=== PATIENT | male | born 1955 | race Caucasian/White ===

== ENCOUNTER → 2018-04-22 | Outpatient (CLI) | payer BC ==
[2018-04-22 13:00] LABS: HEMATOCRIT 47.3 % (42.0-52.0); HEMOGLOBIN 16.4 g/dl (13.5-18.0); MEAN CELL VOLUME 88 fl (80.0-100.0); MEAN CORPUSCULAR HEMOGLOBIN 30 pg (27.0-31.0); MEAN CORPUSCULAR HGB CONC 35 g/dl (33.0-37.0); MEAN PLATELET VOLUME 10.4 fl (7.4-10.4); PLATELET COUNT 242 K/mm3 (130-400); REDCELL DISTRIBUTION WIDTH-CV 12.2 % (11.5-14.5)
[2018-04-22 13:21] LABS: ERYTHROCYTE SEDIMENTATION RATE 1 mm/hr (0-30)
== END ==
LOC: COL.LAB 12:25
PROVIDERS: Orthopaedic Surgery
DX: Z01.812 Encounter for preprocedural laboratory examination (principal); M17.12 Unilateral primary osteoarthritis, left knee

== ENCOUNTER 2018-05-12 08:55 | Inpatient (IN) | payer BC ==
[~2018-05-12] VITALS: Ht 177.8 cm; Wt 99.6 kg
[2018-06-16] VITALS (10 sets, daily range): BP systolic 101–136; BP diastolic 54–79; PULSE 58–97; TEMP 97.7–98.2
[2018-06-16] MEDS ORDERED: PRINIVIL20 MG PO (06:49)
[2018-06-16] MEDS ORDERED: PRILOSEC 20MG20 MG PO (06:51)
--- NOTE | 2018-06-16 16:06 | NUR ---
PT TO ROOM 330 WITH REPORT FROM [facility] PACU @ 9912. PT IS A/O X3, LUNGS CLEAR, BOWEL SOUNDS PRESENT. DRESSING TO LEFT KNEE CDI WITH AQUACEL OVER INCISION. SCDS, TEDS, CRYOCUFF INPLACE. IV TO PUMP, VSS. PT RESTING IN BED
--- NOTE | 2018-06-16 16:20 | NUR ---
PT RESTING IN BED CONTACTED [facility] TO SEND MESSAGE TO CARA CURIEL APRN OR DR MARTINES TO REVIEW ORDERS ON PATIENT.
--- NOTE | 2018-06-16 16:35 | NUR ---
BOBBI AVILES AND CARA CHILD ABUSE WORKER IN TO ROUND ON PATEINT THIS PM.
--- NOTE | 2018-06-16 20:30 | NUR ---
Assessment completed. Patient is A&O x 4. Post-op vitals stable. Denies any pain at this time. Aquacell dressing to left knee is CDI with cryocuff maintained. Pedal pulses intact. BLE abran hose/scds on. Encouraged ankle pumps. Tolerating diet with no c/o nausea. Ortega catheter to DD with yellow clear urine draining. IVF infusing with intermittent antibiotic per orders. Up with assist x 2, patient did get dizzy while up and assisted back into bed after ambulating 15 feet. One in bed positioned patient laying flat with head lowered, stated he felt better once he got back to the bed. Vitals remained stable. Bed remains in a low position with call light in reach.
--- NOTE | 2018-06-16 21:50 | NUR ---
Patient has been resting in bed visiting with family members on his cell phone. Reports he feels much better and does not c/o of any dizziness, prn Oxycodone given for c/o left thigh pain. Denies any concerns or needs, call light remains within reach.
[2018-06-17 00:51] VITALS: BP 134/63; PULSE 72; TEMP 98.7
--- NOTE | 2018-06-17 05:26 | NUR ---
Patient has rested intermittently through the night. VSS. Pain controlled with alternating [place]. Aquacell dressing to left knee remains CDI with cryocuff maintained to knee. Ortega catheter remains to DD with yellow clear urine draining. IVF infusing with intermittent antibiotic. Denies any concerns or needs at this time, call light is within reach.
[2018-06-17 05:48] VITALS: BP 105/69; PULSE 71; TEMP 98.6
[2018-06-17 06:19] LABS: HEMATOCRIT 38.3 % (42.0-52.0); HEMOGLOBIN 13.1 g/dl (13.5-18.0)
[2018-06-17 08:38] VITALS: BP 105/57; PULSE 68; TEMP 97.6
--- NOTE | 2018-06-17 10:22 | NUR ---
First visit from the hardwood floor sander. No needs right now.
[2018-06-17 11:56] VITALS: BP 113/61; PULSE 71; TEMP 98.3
--- NOTE | 2018-06-17 16:00 | NUR ---
SW and SW student met with patient to discuss discharge planning. Patient lives in [place] with his [place]. Patient has a walker and will be doing outpatient PT at [facility]. Patients PCP is Dr Lazaro Celestin and he obtains his mdeications from [facility]. Patient does not have any anticipated discharge needs at this time.
[2018-06-17 16:06] VITALS: BP 95/52; PULSE 90; TEMP 98
[2018-06-17 16:28] LABS: HEMATOCRIT 39.6 % (42.0-52.0); HEMOGLOBIN 13.5 g/dl (13.5-18.0)
[2018-06-17 20:52] VITALS: BP 157/82; PULSE 101; TEMP 98.7
--- NOTE | 2018-06-17 21:00 | NUR ---
Pt. laying in bed at thist time. Pt. is A&OX3, assessment complete. INT to lt. hand patent. Dressing to lt. knee CDI, cryo-cuff on. Pt. denies kev or other needs at this time. Call light within reach.
[2018-06-18 00:25] VITALS: BP 119/68; PULSE 58; TEMP 98.4
--- NOTE | 2018-06-18 06:10 | NUR ---
Pt. slept well through the night. Pt. remains A&OX3. INT to lt. hand patent. Dressing to lt. knee CDI. Cryocuff to lt. knee. Pt. denies pain or other needs at this time.
[2018-06-18] MEDS ORDERED: ASPI325T6 PO (06:41)
[2018-06-18] MEDS ORDERED: TYLENOL 500MG500 MG PO (06:41)
[2018-06-18] MEDS ORDERED: NORCO 325 MG-7.1 TAB PO (06:49)
[2018-06-18] MEDS ORDERED: ROXICODONE 55 MG/TAB PO (06:50)
--- NOTE | 2018-06-18 07:10 | NUR ---
REPORT FROM YOU RIBERA. CARA MONTELONGO CIRCULATION CLERK IN TO SEE PT. PLAN ON DISCHARGE HOME TOMMORROW IF INSURANCE COVERAGE AUTHORIZED. REQUEST FOR MONOLOGIST/CASE MANAGEMENT TO VERIFY COVERAGE FOR ONE MORE NIGHT. PT RESTING IN BED. DENIES NEEDS AT THIS TIME.
[2018-06-18 07:38] VITALS: BP 125/61; PULSE 95; TEMP 98.6
--- NOTE | 2018-06-18 08:54 | NUR ---
PT UP INDEPENDENTLY IN ROOM. DRESSING TO KNEE CDI WITH NO DRAINAGE NOTED. PAIN CONTROLLED WITH PO MEDS.
[2018-06-18 11:46] VITALS: BP 109/64; PULSE 95; TEMP 98.9
--- NOTE | 2018-06-18 14:24 | NUR ---
DRESSING CHANGE COMPLETE. DISTAL DRAINAGE NOTED. BITA INTACT AND CLEAN. NEW AQUACEL APPLIED.
--- NOTE | 2018-06-18 14:48 | NUR ---
DISCHARGE INSTRUCTIONS PROVIDED TO PT AND . QUESTIONS ANSWERED BOTH VERBALIZED UNDERSTANDING. PT ESCORTED TO FRONT VIA WC WITH STAFF.
== END 2018-06-18 15:14 | disposition home or self-care (01) | DRG 468 ==
LOC: JCC 06-16 05:44
PROVIDERS: ADMIT Orthopaedic Surgery
PROC: 0SPD0JZ Removal of Synthetic Substitute from Left Knee Joint, Open Approach (ICD-10-PCS; 2018-06-16)
PROC: 0SRD0J9 Replacement of Left Knee Joint with Synthetic Substitute, Cemented, Open Approach (ICD-10-PCS; 2018-06-16)
PROC: 0SBD0ZZ Excision of Left Knee Joint, Open Approach (ICD-10-PCS; 2018-06-16)
PROC: 0SPD0JZ Removal of Synthetic Substitute from Left Knee Joint, Open Approach (ICD-10-PCS; principal; 2018-06-16 10:45)
DX: T84.023A Instability of internal left knee prosthesis, initial encounter (principal); T84.033A Mechanical loosening of internal left knee prosthetic joint, initial encounter; T84.84XA Pain due to internal orthopedic prosthetic devices, implants and grafts, initial encounter; M65.9 Synovitis and tenosynovitis, unspecified; T84.093A Other mechanical complication of internal left knee prosthesis, initial encounter; I10 Essential (primary) hypertension; E78.00 Pure hypercholesterolemia, unspecified; K21.9 Gastro-esophageal reflux disease without esophagitis
CPT/HCPCS: A4314; C1713; J0690; J2250; J2704; J3260; J3370; J7120

== ENCOUNTER → 2018-06-09 | Outpatient (CLI) | payer BC ==
[2018-06-09 15:36] LABS: HIV 1/2 Antibodies Non-Reactive; HIV-1p24 Antigen Non-Reactive
== END ==
LOC: COL.LAB 14:47
PROVIDERS: Orthopaedic Surgery
DX: Z01.812 Encounter for preprocedural laboratory examination (principal)